=== PATIENT | male | born 1990 | race Hispanic/Latino ===

== ENCOUNTER 2021-07-04 12:41 | Emergency (ER) | payer OTHER ==
[~2021-07-04] VITALS: Ht 177.8 cm; Wt 99.8 kg
[2021-07-04 12:46] VITALS: BP 154/95
[2021-07-04 13:23] LABS: BASOPHILS % (AUTO) 0.4 % (0.0-5.0); EOSINOPHILS % (AUTO) 2.1 % (0.0-8.0); HEMATOCRIT 43.1 % (42-54); MEAN CORPUSCULAR HEMOGLOBIN 29.9 pg (27.0-33.0); MEAN CORPUSCULAR HGB CONC 34.1 g/dL (32.0-36.0); MEAN CORPUSCULAR VOLUME 87.8 fL (79-99); MONOCYTES % (AUTO) 8.4 % (3.0-13.0); NEUTROPHILS % (AUTO) 56.6 % (40.0-77.0); PLATELET COUNT (AUTO) 232 K/uL (130-400); RED BLOOD CELL COUNT(AUTO) 4.91 MIL/uL (4.50-6.20); RED CELL DISTRIBUTION WIDTH 11.9 % (11.0-15.5); WHITE BLOOD COUNT (AUTO) 7.6 K/uL (4.8-10.8)
[2021-07-04] MEDS ORDERED: MORPHINE 4 MG SYG IVP ONE (13:30)
[2021-07-04] MEDS ORDERED: ONDANSETRON 4MG INJ IVP ONE (13:30)
[2021-07-04] MEDS ORDERED: KETOROLAC 15MG/ML VIAL (15MG/ML) IV ONE (13:30)
[2021-07-04] MEDS ORDERED: 0.9%NACL 1000ML 1,000 ML IV ONE (13:30)
[2021-07-04 13:36] LABS: CREATININE 0.9 mg/dL (0.5-1.5); POTASSIUM 4.2 mmol/L (3.5-5.1)
[2021-07-04 13:41] LABS: ALBUMIN 3.6 g/dL (3.5-5.0); BILIRUBIN,TOTAL 0.3 mg/dL (0.2-1.0); TOTAL PROTEIN, SERUM 6.9 g/dL (6.0-8.3)
[2021-07-04 13:44] LABS: APPEARANCE,URINE Clear (CLEAR); BILIRUBIN,URINE Negative (NEGATIVE); COLOR,URINE Yellow (YELLOW); GLUCOSE, URINE (UA) Negative (NEGATIVE); KETONES,URINE Negative (NEGATIVE); LEUKOCYTE ESTERASE ,URINE Negative (NEGATIVE); NITRATE,URINE Negative (NEGATIVE); OCCULT BLOOD,URINE Negative (NEGATIVE); PROTEIN,URINE Negative (NEGATIVE)
[2021-07-04] MEDS ORDERED: NAPR500T6 PO (14:56)
[2021-07-04] MEDS ORDERED: ONDA4TAB10 PO (14:56)
== END 2021-07-04 16:20 | disposition home or self-care (01) ==
LOC: EDH 12:41
DX: N20.1 Calculus of ureter (principal); Z88.0 Allergy status to penicillin
CPT/HCPCS: 36415; 74176; 80053; 81003; 85025; 96374; 96375; 99284; J1885; J2270; J2405; J7030

== ENCOUNTER 2022-01-28 12:52 | Emergency (ER) | payer OTHER ==
[~2022-01-28 12:52] MED LIST: NAPR500T6 PO; ONDA4TAB10 PO
[2022-01-28] MEDS ORDERED: CIPR-278 PO (22:07)
[2022-01-28] MEDS ORDERED: ONDA4TAB10 PO (22:07)
== END 2022-01-28 13:52 | disposition left against medical advice (07) ==
LOC: EDH 12:52
DX: R19.7 Diarrhea, unspecified (principal); R10.9 Unspecified abdominal pain; Z53.21 Procedure and treatment not carried out due to patient leaving prior to being seen by health care provider

== ENCOUNTER 2022-01-28 16:27 | Emergency (ER) | payer OTHER ==
[~2022-01-28] VITALS: Ht 180.3 cm; Wt 99.8 kg
[2022-01-28 17:44] LABS: BASOPHILS % (AUTO) 0.4 % (0.0-5.0); EOSINOPHILS % (AUTO) 2.2 % (0.0-8.0); HEMATOCRIT 45.7 % (42-54); LYMPHOCYTES % (AUTO) 31.9 % (21.0-51.0); MEAN CORPUSCULAR HEMOGLOBIN 29.6 pg (27.0-33.0); MEAN CORPUSCULAR HGB CONC 33.9 g/dL (32.0-36.0); MEAN CORPUSCULAR VOLUME 87.4 fL (79-99); MONOCYTES % (AUTO) 14.1 % (3.0-13.0); PLATELET COUNT (AUTO) 268 K/uL (130-400); RED BLOOD CELL COUNT(AUTO) 5.23 MIL/uL (4.50-6.20); RED CELL DISTRIBUTION WIDTH 11.5 % (11.0-15.5); WHITE BLOOD COUNT (AUTO) 6.9 K/uL (4.8-10.8)
[2022-01-28 17:55] LABS: POTASSIUM 3.7 mmol/L (3.5-5.1)
[2022-01-28 18:00] LABS: ALBUMIN 3.7 g/dL (3.5-5.0)
[2022-01-28] MEDS ORDERED: PANTOPRAZOLE 40 MG/VIAL IVP ONE (20:30)
[2022-01-28] MEDS ORDERED: 0.9%NACL 1000ML 1,000 ML IV ONE (20:30)
[2022-01-28 20:33] LABS: APPEARANCE,URINE CLEAR (CLEAR); BILIRUBIN,URINE NEGATIVE (NEGATIVE); COLOR,URINE YELLOW (YELLOW); GLUCOSE, URINE (UA) NEGATIVE (NEGATIVE); KETONES,URINE 10 mg/dL (NEGATIVE); LEUKOCYTE ESTERASE ,URINE NEGATIVE Leu/uL (NEGATIVE); NITRATE,URINE NEGATIVE (NEGATIVE); OCCULT BLOOD,URINE SMALL (NEGATIVE); PROTEIN,URINE 20 mg/dL (NEGATIVE); UROBILINOGEN,URINE 0.2 mg/dL (0.2-1.0)
[2022-01-28 20:57] LABS: BACTERIA,URINE FEW /HPF (None Seen); MUCUS,URINE MOD LPF (None Seen)
[2022-01-28] MEDS ORDERED: DICYCLOMINE 20MG (10MG/ML) AMP IM STA (21:16)
[2022-01-28 21:30] VITALS: BP 127/76
[2022-01-28] MEDS ORDERED: ONDA4TAB10 PO (22:07)
[2022-01-28] MEDS ORDERED: CIPR-278 PO (22:07)
== END 2022-01-28 22:20 | disposition home or self-care (01) ==
LOC: EDH 16:27
DX: K52.9 Noninfective gastroenteritis and colitis, unspecified (principal); Z79.1 Long term (current) use of non-steroidal anti-inflammatories (NSAID); Z88.0 Allergy status to penicillin
CPT/HCPCS: 99285; 74176; 96374; 96361; 82270; 80053; 85025; 86850; 86900; 86901; 81001; 36415; 96372; J7030; C9113; J0500

== ENCOUNTER 2023-12-13 14:02 | Emergency (ER) | payer SELFPAY ==
[~2023-12-13] VITALS: Ht 177.8 cm; Wt 99.8 kg
[~2023-12-13 14:02] MED LIST changes: +CIPR-278 PO; +NAPR-1506 PO; -NAPR500T6 PO; +ONDA-243 PO; -ONDA4TAB10 PO
[2023-12-13 14:18] VITALS: BP 125/65; PULSE 60; RESP 18; TEMP 98.1; O2SAT 99
[2023-12-13] MEDS: CYCLOBENZAPRINE HCL 10 MG TABLET PO ONE (14:34)
[2023-12-13] MEDS: acetaMINOPHEN WITH coDEINE 1 TAB TAB PO ONE (14:35)
[2023-12-13] MEDS: dexaMETHasone SOD PHOSPHATE 4 MG/ML 1ML VIAL IM ONE (14:35)
[2023-12-13] MEDS ORDERED: METH4TAB3 PO (15:50)
[2023-12-13] MEDS ORDERED: CYCL-309 PO (15:50)
[2023-12-13] MEDS ORDERED: IBUP-2077 PO (15:50)
== END 2023-12-13 16:06 | disposition home or self-care (01) ==
LOC: EDH 14:02
DX: M54.16 Radiculopathy, lumbar region (principal); Z79.899 Other long term (current) drug therapy; Z88.0 Allergy status to penicillin
CPT/HCPCS: 99283; 72100; 96372; J1100